=== PATIENT | male | born 1950 | race Caucasian/White ===

== ENCOUNTER 2016-12-06 07:43 | Outpatient (CLI) | payer MEDICARE, OTHER ==
--- NOTE | 2016-12-06 10:12 | CT ---
CT PULMONARY LUNG SCAN NONCONTRAST: Date: 12/06/16 HISTORY: Screening. Tobacco abuse. COMPARISON: 03/01/13. FINDINGS: In addition to scattered calcified granulomata, multiple tiny subpleural noncalcified nodules are al so present. The largest remains within the right lateral lung base, at 0.4 cm greatest diameter. It is stable compared to the 03/01/13 study. No pleral fluid, pneumothorax, or lobar consolidation is a pparent. Lack of contrast limits evaluation of the mediastinum. There is calcification in the arterial struct ures. Gallbladder is surgically absent. IMPRESSION: Healed granulomatous disease of the chest. Tiny bilateral subpleural noncalcified nodules have shown four year stability. Lung-RADS Category 2 - benign findings. Suggest routine screening. POS: [facility]
== END 2016-12-06 07:44 | disposition home or self-care (01) ==
LOC: CT 07:43
PROVIDERS: ATTEND Family Medicine
DX: Z87.891 Personal history of nicotine dependence (principal)
CPT/HCPCS: G0297

== ENCOUNTER 2017-06-10 08:45 | Outpatient (CLI) | payer MEDICARE, OTHER ==
[~2017-06-10 08:45] MED LIST: Iopamidol 370 76% 100 ML VIAL ONE
--- NOTE | 2017-06-10 13:43 | CT ---
CT ABDOMEN AND PELVIS PERFORMED WITH CONTRAST ENHANCEMENT: HISTORY: Abdominal pain and diarrhea for three months. History of cholecystectomy and appendectomy. FINDINGS: ABDOMEN: The lung bases show COPD type change. The liver shows fatty change. The spleen and pancreas regions are unremarkable. The gallbladder has been removed. The right and left adrenal glands and the right left kidneys are normal in size. There is no signifi cant periaortic or mesenteric adenopathy. There is colonic diverticulosis, which is more pronounced in the sigmoid and descending colon region. No inflammatory change is seen. PELVIS: A right-sided penile pump is noted. No inflammatory process, adenopathy, or mass. There ar e arthritic changes of the spine. IMPRESSION: 1. Colonic diverticulosis, more pronounced in the descending and sigmoid colon region. 2. No acute abnormalities of the abdomen or pelvis. POS: [facility]
== END 2017-06-10 08:46 | disposition home or self-care (01) ==
LOC: CT 08:45 → EDSTATUS 10:30
PROVIDERS: ATTEND Family Medicine
DX: R10.30 Lower abdominal pain, unspecified (principal); R19.7 Diarrhea, unspecified; K57.30 Diverticulosis of large intestine without perforation or abscess without bleeding
CPT/HCPCS: 74177

== ENCOUNTER 2019-09-28 09:29 | Outpatient (CLI) | payer MEDICARE, OTHER ==
--- NOTE | 2019-09-28 10:42 | CT ---
EXAM: CT Pulmonary Lung Scan PROVIDED CLINICAL HISTORY: Personal history of tobacco abuse. Patient smoked for over 50 years. COMPARISON: CT pulmonary lung scan on 12/06/2016 FINDINGS: Scattered calcified granulomata are again seen throughout the right lung. Pleural-based nodular densi ties are also again seen largest measuring approximately 6 mm along the minor fissure. No new pulmonary nodule or mass is seen. No pleural effusion is evident. Minimal groundglass density is seen along the superior aspect of the major fissure on the left in the left upper lobe which may be attributable to volume loss. Lack of intravenous contrast limits sensitivity for evaluation of vascular structures and mediastinum . Vascular calcifications are again seen in the thoracic aorta and involving the coronary arteries. No enlarged lymph nodes are seen on this exam. Imaging of the upper abdomen demonstrates evidence of cholecystectomy changes with vascular calcifica tions in the visualized abdominal aorta. Degenerative changes are again seen in the spine. IMPRESSION: Lung RADS category 2-benign findings. Continued annual screening with low-dose CT scan thorax in 12 [facility] is recommended.
== END 2019-09-28 09:30 | disposition home or self-care (01) ==
LOC: CT 09:29
PROVIDERS: ATTEND Family Medicine
DX: Z12.2 Encounter for screening for malignant neoplasm of respiratory organs (principal); Z87.891 Personal history of nicotine dependence
CPT/HCPCS: G0297

== ENCOUNTER 2020-05-02 09:00 | Outpatient (CLI) | payer MEDICARE, OTHER ==
--- NOTE | 2020-05-02 13:10 | CT ---
CT of thelumbar spine: 05/02/2020 COMPARISON:05/21/2012 HISTORY:Lumbar radiculopathy TECHNIQUE: Serial axial CT imaging at3 mm intervals from thelower thoracic spine through the lower sa crystal without contrast. Coronal and sagittal reformatted imaging obtained Findings:Evaluation for central canal and/or neural foraminal stenosis is limited on routine CT. A ro und bulb seen in the right lower quadrant which is associated with a device, incompletely visualized. There is diverticulosis of the sigmoid colon and descending colon. There is scattered ath erosclerotic calcification of the abdominal aorta and its branches. There is a incompletely imaged segment of tubing within the central canal which appears intrathecal i n location, its inferior tip at the axial level of the L3-4 interspace and its superior tip incompletely visualized. This has migrated superiorly when compared to the 2012 CT at which time its inferior tip was at the S1-2 axial level. No significant anterolisthesis or retrolisthesis is noted within the lumbar spine. T12-L1: There is mild anterior osteophyte formation on the right with lateral right osteophyte format ion. Mild bilateral facet hypertrophy. No osseous cause of significant central canal or neural foraminal stenosis. L1-2: Mild anterior osteophyte formation and mild bilateral facet hypertrophy with no osseous cause o f significant central canal or neural foraminal stenosis. L2-3: Mild bilateral facet hypertrophy present. Mild anterior osteophyte formation. Probable mild apurva ateral neural foraminal stenosis. No osseous cause of significant central canal stenosis. L3-4: There is bilateral facet hypertrophy and mild anterior osteophyte formation. Probable mild cent ral canal stenosis and bilateral neural foraminal stenosis. L4-5: Prominent bilateral facet hypertrophy and hypertrophy of the ligamentum flavum. Disc bulge note d. Moderate/severe central canal stenosis is noted. Moderate/severe right neural foraminal stenosis and moderate left neural foraminal stenosis. L5-S1: Bilateral facet hypertrophy. There is disc space narrowing with degenerative endplate change a nd vacuum disc formation, most prominent laterally on the left. There is severe left neural foraminal stenosis and moderate right neural foraminal stenosis with at least mild central canal sten osis. No discrete lytic or blastic bone lesion. No acute fracture or dislocation. Impression:Multilevel degenerative change within the lumbar spine as described above. If more detaile d assessment for underlying central canal and/or neural foraminal stenosis is clinically warranted, CT myelogram may be beneficial. There is a incompletely imaged segment of intrathecal catheter tubing which has migrated cephalad whe n compared to the prior CT.
== END 2020-05-02 09:01 | disposition home or self-care (01) ==
LOC: CT 09:00
PROVIDERS: ATTEND Family Medicine
DX: M47.26 Other spondylosis with radiculopathy, lumbar region (principal)
CPT/HCPCS: 72131

== ENCOUNTER 2020-07-07 07:22 | Day surgery (SDC) | payer MEDICARE, OTHER ==
[2020-07-05 11:36] VITALS: BMI 29.6
[2020-07-07 08:15] VITALS: BP 134/67; TEMP 97.2
[2020-07-07] MEDS ORDERED: Iopamidol-M 300 61% 15 ML VIAL ONE (12:01)
== END 2020-07-07 10:25 | disposition home or self-care (01) ==
LOC: RAD 07:22
PROVIDERS: ATTEND Surgery
PROC: B02B1ZZ Computerized Tomography (CT Scan) of Spinal Cord using Low Osmolar Contrast (ICD-10-PCS; principal; 2020-07-07)
DX: M54.16 Radiculopathy, lumbar region (principal); M48.061 Spinal stenosis, lumbar region without neurogenic claudication; M43.16 Spondylolisthesis, lumbar region; M54.12 Radiculopathy, cervical region; I70.0 Atherosclerosis of aorta; E11.9 Type 2 diabetes mellitus without complications; J44.9 Chronic obstructive pulmonary disease, unspecified; E78.5 Hyperlipidemia, unspecified; Z87.891 Personal history of nicotine dependence; Z79.4 Long term (current) use of insulin; Z79.899 Other long term (current) drug therapy; Z96.82 Presence of neurostimulator
CPT/HCPCS: 62305; 72050; 72072; 72120; 72126; 72129; 72132; Q9967

== ENCOUNTER 2020-08-10 11:02 | Outpatient (CLI) | payer MEDICARE, OTHER ==
[2020-08-10 12:27] LABS: Hemoglobin 13.6 g/dL (13.5-17.5); Mean Corpuscular HGB CONC 32.9 g/dL (32.0-36.0); Mean Corpuscular Hemoglobin 29.1 pg (27.0-33.0); Mean Corpuscular Volume 88.2 fl (81.2-95.1); Mean Platelet Volume 11.6 fl (7.4-10.4); Platelet Count 186 10x3/uL (150-450); RBC Distribution Width 13.8 % (11.5-14.5); Red Blood Cell (RBC) Count 4.68 10x6/uL (4.32-5.72)
[2020-08-10 12:38] LABS: Anion Gap 13 mmol/L (10-20); BUN (Urea Nitrogen) 16 mg/dL (8.4-25.7); Calc. Creatinine Clearance 0 mL/min (70-130); Calcium 9.1 mg/dL (7.8-10.44); Carbon Dioxide 22 mmol/L (23-31); Chloride 109 mmol/L (98-107); Glucose 215 mg/dL (83-110); Potassium 4.8 mmol/L (3.5-5.1); Sodium 139 mmol/L (136-145)
[2020-08-10 12:41] LABS: INR-International Normal Ratio 0.9; PTT 24.9 sec (22.0-33.0); Prothrombin Time 10.5 sec (9.5-12.1)
== END 2020-08-10 11:03 | disposition home or self-care (01) ==
LOC: LABBT 11:02
PROVIDERS: ATTEND Surgery
DX: Z01.818 Encounter for other preprocedural examination (principal); M48.062 Spinal stenosis, lumbar region with neurogenic claudication
CPT/HCPCS: 80048; 85027; 85610; 85730; 93005; 93010

== ENCOUNTER 2020-08-15 06:33 | Day surgery (SDC) | payer MEDICARE, OTHER ==
[2020-08-14 11:24] VITALS: BMI 31.6
[2020-08-15] MEDS ORDERED: Fentanyl 250 MCG/5 ML VIAL ONE (06:45)
[2020-08-15] MEDS ORDERED: Thrombin 5000 UNITS/5 ML VIAL ONE (06:49)
[2020-08-15] MEDS ORDERED: Albuterol Sulfate 2.5 mg/3 ml Neb ONE (07:09)
[2020-08-15] MEDS ORDERED: Glycopyrrolate 0.2 MG/ML 5 ML SYRINGE ONE (07:47)
[2020-08-15] MEDS ORDERED: Ondansetron PF 4 MG/2 ML Vial ONE (07:47)
[2020-08-15] MEDS ORDERED: Rocuronium Bromide 10 MG/ML (10ML VIAL) ONE (07:47)
[2020-08-15] MEDS ORDERED: Ketorolac Tromethamine 30 MG/ML VIAL ONE (07:47)
[2020-08-15] MEDS ORDERED: PROPOFOL 200 MG/20 ML VIAL ONE (07:47)
[2020-08-15] MEDS ORDERED: Dexamethasone 20 MG/5 ML VIAL ONE (07:47)
[2020-08-15] MEDS ORDERED: Lidocaine 1% PF 5 ML VIAL ONE (07:47)
[2020-08-15] MEDS ORDERED: Metoclopramide HCl 10 MG/2 ML VIAL ONE (07:47)
[2020-08-15] MEDS ORDERED: Ondansetron HCl/PF 4 MG/2 ML Vial IVP PRN (08:51)
[2020-08-15] MEDS ORDERED: HYDROmorphone 2 MG/ML VIAL SLOW IVP PRN (08:51)
[2020-08-15] MEDS ORDERED: PACU-Morphine 4MG/ML VIAL SLOW IVP PRN (08:51)
[2020-08-15] MEDS ORDERED: Promethazine HCl 25 MG/ML VIAL SLOW IVP PRN (08:51)
[2020-08-15] MEDS ORDERED: Promethazine HCl 25 MG/ML VIAL IM PRN (08:51)
[2020-08-15] MEDS ORDERED: Morphine Sulfate 2 MG/ML SYRINGE SLOW IVP PRN (08:51)
[2020-08-15] MEDS ORDERED: HYDROcodone/Acetaminophen 7.5/325 mg Tablet PO PRN (11:30)
[2020-08-15] MEDS ORDERED: traMADol HCl 50 MG TAB PO PRN (11:30)
[2020-08-15] MEDS ORDERED: Acetaminophen/Codeine 30-300mg Tablet PO PRN (11:30)
[2020-08-15] MEDS ORDERED: Acetaminophen 325 MG TAB PO PRN (11:30)
[2020-08-15] MEDS ORDERED: Morphine 2 MG/ML VIAL SLOW IVP PRN (11:30)
[2020-08-15] MEDS ORDERED: Ipratropium Oral Inhaler INH PRN (11:32)
[2020-08-15] MEDS ORDERED: Pregabalin 50 MG CAP PO PRN (11:32)
[2020-08-15] MEDS ORDERED: Ascorbic Acid 500 mg Chewable Tablet PO SCH (12:00)
[2020-08-15] MEDS ORDERED: Morphine 2 MG/ML VIAL ONE (12:28)
[2020-08-15] MEDS ORDERED: Dextrose 50% Abboject 50 ML SYRINGE IVP PRN (14:30)
[2020-08-15] MEDS ORDERED: Dextrose 5% in Water 1,000 ML IV PRN (14:30)
[2020-08-15] MEDS ORDERED: HumaLOG 300 UNITS/3 ML VIAL SC PRN (14:30)
[2020-08-15] MEDS ORDERED: Albuterol 200 PUFF (6.7GM INHALER) INH PRN (14:37)
[2020-08-15] MEDS ORDERED: Cyclobenzaprine 10 MG TAB PO PRN (14:39)
[2020-08-15] MEDS: CEFAZOLIN 2 GM in Premix Bag 1 BAG IVPB SCH ×2 (16:00→23:52)
[2020-08-15] MEDS: Sodium Chloride 0.9% 1,000 ML IV SCH (18:12)
[2020-08-15] MEDS: metFORMIN 500 MG TAB PO SCH (19:25)
[2020-08-15] MEDS: Glimepiride 4 MG TAB PO SCH (19:25)
[2020-08-15] MEDS ORDERED: Melatonin 3 MG TAB PO SCH (21:00)
[2020-08-15] MEDS ORDERED: TESTOSTERONE TD SCH (21:00)
[2020-08-16] MEDS: Sodium Chloride 0.9% 1,000 ML IV SCH (04:40)
[2020-08-16 07:21] VITALS: BP 160/74; TEMP 97.8
[2020-08-16] MEDS: Glimepiride 4 MG TAB PO SCH (08:50)
[2020-08-16] MEDS: metFORMIN 500 MG TAB PO SCH (08:50)
[2020-08-16] MEDS ORDERED: Lantus 1000 UNITS/10 ML VIAL SC SCH (09:00)
[2020-08-16] MEDS ORDERED: PHENTERMINE PO SCH (09:00)
[2020-08-16] MEDS ORDERED: Stress 600 With Zinc 1 TAB PO SCH (09:00)
[2020-08-16] MEDS ORDERED: TOPIRAMATE PO SCH (09:00)
[2020-08-16] MEDS ORDERED: CHROMIUM PICOLINATE 400 MCG PO SCH (09:00)
[2020-08-16] MEDS ORDERED: Rosuvastatin 5 MG TAB PO SCH (09:00)
[2020-08-16] MEDS ORDERED: Dutasteride 0.5 MG CAP PO SCH (09:00)
[2020-08-16] MEDS ORDERED: LIRAGLUTIDE 0.6 MG/0.1 ML SC SCH (09:00)
== END 2020-08-16 10:12 | disposition home or self-care (01) ==
LOC: SDC 06:33 → T4-B 11:30 → SDC 08-16 10:12
PROVIDERS: ATTEND Surgery
PROC: 01NB0ZZ Release Lumbar Nerve, Open Approach (ICD-10-PCS; principal; 2020-08-15)
DX: M48.062 Spinal stenosis, lumbar region with neurogenic claudication (principal); E78.5 Hyperlipidemia, unspecified; E11.40 Type 2 diabetes mellitus with diabetic neuropathy, unspecified; K21.9 Gastro-esophageal reflux disease without esophagitis; N40.0 Benign prostatic hyperplasia without lower urinary tract symptoms; F17.210 Nicotine dependence, cigarettes, uncomplicated; J43.9 Emphysema, unspecified; M19.90 Unspecified osteoarthritis, unspecified site; Z79.84 Long term (current) use of oral hypoglycemic drugs; Z79.899 Other long term (current) drug therapy
CPT/HCPCS: 63047; 76000; 82962; 94640; J2270; 36416; J0690; J1100; J1815; J1885; J2405; J2704; J2765; J3010; J3370; J7611

== ENCOUNTER 2024-12-03 11:00 | Outpatient (CLI) | payer MEDICARE, OTHER | END 2024-12-03 11:01 | disposition home or self-care (01) | LOC: BICCT 11:00 | PROVIDERS: ATTEND Family Medicine | DX: Z01.89 Encounter for other specified special examinations (principal); F03.B0 Unspecified dementia, moderate, without behavioral disturbance, psychotic disturbance, mood disturbance, and anxiety | CPT/HCPCS: 70450 ==